=== PATIENT | female | born 2000 | race Caucasian/White ===

== ENCOUNTER 2021-11-04 09:14 | Outpatient (CLI) | payer BC | END 2021-11-04 09:15 | disposition home or self-care (01) | LOC: CSHRAD 09:14 | PROVIDERS: ATTEND Nurse Practitioner | DX: I47.1 Supraventricular tachycardia (principal) | CPT/HCPCS: 93306 ==

== ENCOUNTER 2022-05-22 08:38 | Outpatient (CLI) | payer BC | END 2022-05-22 08:39 | disposition home or self-care (01) | LOC: CSHULT 08:38 | PROVIDERS: ATTEND Nurse Practitioner Family | DX: R19.7 Diarrhea, unspecified (principal); R10.84 Generalized abdominal pain; R11.0 Nausea | CPT/HCPCS: 76700 ==